=== PATIENT | female | born 1980 | race Native Hawaiian/Other Pacific Islander ===

== ENCOUNTER → 2016-06-05 | Outpatient (CLI) | payer BC | END | disposition home or self-care (01) | LOC: LABWHC1 14:32 | PROVIDERS: ATTEND Midwife | DX: Z36 Encounter for antenatal screening of mother (principal) | CPT/HCPCS: 36415; 82950 ==

== ENCOUNTER → 2016-06-29 | Outpatient (CLI) | payer BC ==
[2016-06-29 13:16] LABS: Glucose 3 Hour, Gest 110 mg/dL
== END ==
LOC: LABWHC1 08:17
PROVIDERS: ATTEND Obstetrics & Gynecology
DX: R73.09 Other abnormal glucose (principal)
CPT/HCPCS: 36415; 82951; 82952

== ENCOUNTER 2020-05-11 17:24 | Observation (INO) | payer BC, OTHER ==
[2020-05-11] MEDS ORDERED: SODIUM CHLORIDE 0.9% 1,000 ML IV STA (17:54)
[2020-05-11] MEDS ORDERED: ONDANSETRON 4 MG/2 ML VIAL IVP STA (17:54)
[2020-05-11] MEDS ORDERED: MORPHINE SULFATE 4 MG/ML SYRINGE IV STA (17:54)
[2020-05-11] MEDS ORDERED: ACETAMINOPHEN TAB 500 MG TAB PO STA (18:03)
--- NOTE | 2020-05-11 18:06 | ED ---
Abdominal Pain HPI - General Source: patient Mode of arrival: ambulatory Limitations: no limitations <Carol Wheeler - Last Filed: 05/11/20 20:21> <Mable Garcia - Last Filed: 05/15/20 16:16> - General Chief Complaint: Abdominal Pain Stated Complaint: Stomachache Time Seen by Provider: 05/11/20 17:43 - History of Present Illness Initial Comments: Patient is a 40-year-old female, with history of ulcerative colitis, presenting to the emergency Department with complaints of acute abdominal pain for the last 2 days. Patient states she has not had any issues with her colitis in many years, however the past 2 weeks she has been noticing increase in bloody diarrhea. Patient states for the last 2 days her abdominal pain has increased tremendously. She stated yesterday she noticed a fever about 99-100 which has continued today. She has not been able to eat or drink very much, she has been very nauseous. She denies being secondary to tubal ligation. She denies any abdominal surgeries. She denies any chest pain or shortness of breath, recent cough or congestion. She states her pain is mostly in the upper abdomen but does have shooting pains to her lower abdomen. She denies any recent antibiotics, she is not on steroids. She has no further complaints at this time. Upon arrival to the ER, she does with temperature 99.8, her pulse is 1:30, rest of vitals are normal. (Carol Wheeler) - Related Data Previous Rx's Medication Instructions Recorded Dicyclomine [Bentyl] 10 mg PO TID #30 capsule 05/12/20 Ondansetron Odt [Zofran Odt] 4 mg PO Q8HR PRN 3 Days #9 tab 05/12/20 predniSONE 0 mg PO DIRECTED #30 tab 05/12/20 Allergies Allergy/AdvReac Type Severity Reaction Status Date / Time No Known Allergies Allergy Verified 05/11/20 18:48 Review of Systems ROS Other: All systems not noted in ROS Statement are negative. <Carol Wheeler - Last Filed: 05/11/20 20:21> ROS Other: All systems not noted in ROS Statement are negative. <Mable Garcia - Last Filed: 05/15/20 16:16> ROS Statement: Those systems with pertinent positive or pertinent negative responses have been documented in the HPI. Past Medical History Additional Past Medical History / Comment(s): Ulcerative colitis History of Any Multi-Drug Resistant Organisms: None Reported Past Surgical History: Section Additional Past Surgical History / Comment(s): back surgery Past Psychological History: No Psychological Hx Reported Smoking Status: Never smoker Past Alcohol Use History: None Reported Past Drug Use History: None Reported <Carol Wheeler - Last Filed: 05/11/20 20:21> General Exam Limitations: no limitations <Carol Wheeler - Last Filed: 05/11/20 20:21> - General Exam Comments Initial Comments: GENERAL: Patient is well-developed and well-nourished. Patient looks very uncomfortable, in moderate distress, diaphoretic. HEAD: Atraumatic, normocephalic. EYES: Pupils equal round and reactive to light, extraocular movements intact, sclera anicteric, conjunctiva are normal. Eyelids were unremarkable. ENT: TMs normal, nares patent, oropharynx clear without exudates. Moist mucous membranes. NECK: Normal range of motion, supple without lymphadenopathy or JVD. LUNGS: Unlabored respirations. Breath sounds clear to auscultation bilaterally and equal. No wheezes rales or rhonchi. HEART: Tachy rate and rhythm without murmurs, rubs or gallops. ABDOMEN: Patient's abdomen is very tender all over, no specific area of pain. She is guarding. Soft, hyperactive bowel sounds. No masses appreciated. : Deferred MUSCULOSKELETAL: Normal extremities with adequate strength and normal range of motion, no pitting or edema. No clubbing or cyanosis. NEUROLOGICAL: Patient is alert and oriented x 3. Motor and sensory are also intact. Cranial nerves II through XII grossly intact. Symmetrical smile. Normal speech, normal gait. PSYCH: Normal mood, normal affect. SKIN: Warm, Dry, normal turgor, no rashes or lesions noted. (Carol Wheeler) Course Vital Signs 05/11/20 05/11/20 17:34 19:17 Temperature 99.8 F H Pulse Rate 132 H 115 H Respiratory 20 18 Rate Blood Pressure 130/74 144/72 O2 Sat by Pulse 99 100 Oximetry Medical Decision Making - Lab Data Result diagrams: 05/11/20 17:54 01/16/21 17:54 <Carol Wheeler - Last Filed: 05/11/20 20:21> - Lab Data Result diagrams: 05/12/20 10:13 05/12/20 10:13 <Mable Garcia - Last Filed: 05/15/20 16:16> - Medical Decision Making Patient is a 40-year-old female with history of ulcerative colitis presenting with acute abdominal pain 2 days as well as 2 weeks of bloody diarrhea. She has not had any issues for many years with her UC. Positive fever for 2 days, she did arrive febrile 99.8, tachycardia at 130. She is in moderate distress, significant abdominal pain on palpation, diaphoretic. Patient does have an elevated white count 19.3, coags are normal, hemoglobin is stable, lactic acid is 1.0, lipase is normal. CT of the abdomen shows moderate descending colon wall thickening, represents colitis, no bowel obstruction or acute appendicitis. Patient was given fluids, pain control, Zofran. She continues to be in moderate pain, continues to be nauseous. I discussed these findings with the patient. Did recommend admission for IV steroids, dose of antibiotics for the colitis and acute flare. Patient is in agreement with this plan and care. Patient was accepted by Dr. Shields, case discussed with Dr. Garcia. I did give single dose of solu-Medrol as well as Rocephin and Flagyl. GI consult. (Carol Wheeler) I was available for consultation in the emergency department. The history and physical exam were done by the midlevel provider. I was consulted for this patients care. I reviewed the case with the midlevel provider and based on their presentation of the patient, I agree with the assessment, medical decision making and plan of care as documented. Chart was dictated using [employer] dictation software. Attempts were made to correct any dictation errors however some typographical errors may persist. Patient was seen during a national state of emergency due to the Covid-19 pandemic. (Mable Garcia) - Lab Data Lab Results 05/11/20 05/11/20 05/11/20 Range/Units 17:54 17:54 17:54 WBC 19.3 H (3.8-10.6) k/uL RBC 4.45 (3.80-5.40) m/uL Hgb 13.2 (11.4-16.0) gm/dL Hct 38.0 (34.0-46.0) % MCV 85.4 (80.0-100.0) fL MCH 29.6 (25.0-35.0) pg MCHC 34.7 (31.0-37.0) g/dL RDW 13.3 (11.5-15.5) % Plt Count 458 H (150-450) k/uL MPV 6.5 Neutrophils % 78 % Lymphocytes % 11 % Monocytes % 9 % Eosinophils % 0 % Basophils % 1 % Neutrophils # 15.1 H (1.3-7.7) k/uL Lymphocytes # 2.1 (1.0-4.8) k/uL Monocytes # 1.7 H (0-1.0) k/uL Eosinophils # 0.1 (0-0.7) k/uL Basophils # 0.1 (0-0.2) k/uL PT 10.8 (9.0-12.0) sec INR 1.0 (<1.2) APTT 25.8 (22.0-30.0) sec Sodium 136 L (137-145) mmol/L Potassium 3.6 (3.5-5.1) mmol/L Chloride 105 (98-107) mmol/L Carbon Dioxide 22 (22-30) mmol/L Anion Gap 9 mmol/L BUN 8 (7-17) mg/dL Creatinine 0.25 L (0.52-1.04) mg/dL Est GFR (CKD-EPI)AfAm >90 (>60 ml/min/1.73 sqM) Est GFR (CKD-EPI)NonAf >90 (>60 ml/min/1.73 sqM) Glucose 99 (74-99) mg/dL Plasma Lactic Acid Andres (0.7-2.0) mmol/L Calcium 9.1 (8.4-10.2) mg/dL Total Bilirubin 0.5 (0.2-1.3) mg/dL AST 24 (14-36) U/L ALT 24 (4-34) U/L Alkaline Phosphatase 125 (38-126) U/L C-Reactive Protein (<10.0) mg/L Total Protein 6.8 (6.3-8.2) g/dL Albumin 3.4 L (3.5-5.0) g/dL Amylase <30 L (30-110) U/L Lipase 36 (23-300) U/L 05/11/20 05/11/20 Range/Units 17:54 17:54 WBC (3.8-10.6) k/uL RBC (3.80-5.40) m/uL Hgb (11.4-16.0) gm/dL Hct (34.0-46.0) % MCV (80.0-100.0) fL MCH (25.0-35.0) pg MCHC (31.0-37.0) g/dL RDW (11.5-15.5) % Plt Count (150-450) k/uL MPV Neutrophils % % Lymphocytes % % Monocytes % % Eosinophils % % Basophils % % Neutrophils # (1.3-7.7) k/uL Lymphocytes # (1.0-4.8) k/uL Monocytes # (0-1.0) k/uL Eosinophils # (0-0.7) k/uL Basophils # (0-0.2) k/uL PT (9.0-12.0) sec INR (<1.2) APTT (22.0-30.0) sec Sodium (137-145) mmol/L Potassium (3.5-5.1) mmol/L Chloride (98-107) mmol/L Carbon Dioxide (22-30) mmol/L Anion Gap mmol/L BUN (7-17) mg/dL Creatinine (0.52-1.04) mg/dL Est GFR (CKD-EPI)AfAm (>60 ml/min/1.73 sqM) Est GFR (CKD-EPI)NonAf (>60 ml/min/1.73 sqM) Glucose (74-99) mg/dL Plasma Lactic Acid Andres 1.0 (0.7-2.0) mmol/L Calcium (8.4-10.2) mg/dL Total Bilirubin (0.2-1.3) mg/dL AST (14-36) U/L ALT (4-34) U/L Alkaline Phosphatase (38-126) U/L C-Reactive Protein 85.7 H (<10.0) mg/L Total Protein (6.3-8.2) g/dL Albumin (3.5-5.0) g/dL Amylase (30-110) U/L Lipase (23-300) U/L Disposition Decision Date: 05/11/20 Decision Time: 19:34 <Carol Wheeler - Last Filed: 05/11/20 20:21> <Mable Garcia - Last Filed: 05/15/20 16:16> Clinical Impression: Ulcerative colitis, acute, Abdominal pain, Febrile Disposition: ADMITTED IP TO THIS [facility] Condition: Stable
[2020-05-11 18:31] LABS: Basophils # (A) 0.1 k/uL (0-0.2); Basophils % (A) 1 %; Eosinophils # (A) 0.1 k/uL (0-0.7); Eosinophils % (A) 0 %; HGB 13.2 gm/dL (11.4-16.0); Lymphocytes # (A) 2.1 k/uL (1.0-4.8); Lymphocytes % (A) 11 %; MCH 29.6 pg (25.0-35.0); MCHC 34.7 g/dL (31.0-37.0); MCV 85.4 fL (80.0-100.0); Mean Platelet Volume 6.5; Monocytes # (A) 1.7 k/uL (0-1.0); Monocytes % (A) 9 %; Neutrophils # (A) 15.1 k/uL (1.3-7.7); Neutrophils % (A) 78 %; Platelet Count 458 k/uL (150-450); RBC 4.45 m/uL (3.80-5.40); RDW 13.3 % (11.5-15.5); WBC 19.3 k/uL (3.8-10.6)
[2020-05-11 18:47] LABS: ALT 24 U/L (4-34); AST 24 U/L (14-36); African American GFR (CKD) >90 (>60 ml/min/1.73 sqM); Albumin 3.4 g/dL (3.5-5.0); Alkaline Phosphatase 125 U/L (38-126); Amylase <30 U/L (30-110); Anion Gap 9 mmol/L; Blood Urea Nitrogen 8 mg/dL (7-17); Calcium 9.1 mg/dL (8.4-10.2); Carbon Dioxide 22 mmol/L (22-30); Chloride 105 mmol/L (98-107); Glucose 99 mg/dL (74-99); Lipase 36 U/L (23-300); Non-African American GFR(CKD) >90 (>60 ml/min/1.73 sqM); Potassium 3.6 mmol/L (3.5-5.1); Sodium 136 mmol/L (137-145); Total Bilirubin 0.5 mg/dL (0.2-1.3); Total Protein 6.8 g/dL (6.3-8.2)
--- NOTE | 2020-05-11 18:52 | CT ---
EXAMINATION TYPE: CT abdomen pelvis w con DATE OF EXAM: 05/11/2020 COMPARISON: None HISTORY: RLQ pain, nausea, vomiting, diarrhea CT DLP: 551.5 mGycm Automated exposure control for dose reduction was used. TECHNIQUE: Helical acquisition of images was performed from the lung bases through the pelvis. CONTRAST: Performed without Oral Contrast and with IV Contrast, patient injected with 100 mL of Isovue 300. FINDINGS: LUNG BASES: No significant abnormality is appreciated. LIVER/GB: No significant abnormality is appreciated. PANCREAS: No significant abnormality is seen. SPLEEN: No significant abnormality is seen. ADRENALS: No significant abnormality is seen. KIDNEYS: Nonspecific mild prominence of the left collecting system without obstructing calculus, may relate to parapelvic cyst versus ectasia. No right hydronephrosis or nephrolithiasis. FREE AIR: No free air is visualized. RETROPERITONEAL ADENOPATHY: None visualized REPRODUCTIVE ORGANS: No significant abnormality is seen URINARY BLADDER: No significant abnormality is seen. PELVIC ADENOPATHY: Scattered small low abdominal and pelvic lymph nodes, likely reactive. OSSEOUS STRUCTURES: No significant abnormality is seen. BOWEL: Moderate wall thickening of the descending colon. No bowel obstruction, free air or fluid. No acute appendicitis. The appendix is not confidently identified. Small hyperdense material within the cecum, may relate to ingested medication. OTHER: Bilateral tubal ligation clips seen. IMPRESSION: MODERATE DESCENDING COLONIC WALL THICKENING, MAY REPRESENT COLITIS. NO BOWEL OBSTRUCTION OR ACUTE APPENDICITIS. INCIDENTAL FINDINGS ABOVE.
[2020-05-11 18:53] LABS: Partial Thromboplastin Time 25.8 sec (22.0-30.0); Prothrombin Time 10.8 sec (9.0-12.0)
[2020-05-11] MEDS ORDERED: METOCLOPRAMIDE 5 MG/ML 2 ML VIAL IVP STA (19:24)
[2020-05-11] MEDS ORDERED: MORPHINE SULFATE 4 MG/ML SYRINGE IVP STA (19:24)
[2020-05-11] MEDS ORDERED: HYDROmorphone 1 MG/ML 1 ML SYRINGE IVP PRN (19:30)
[2020-05-11] MEDS ORDERED: SODIUM CHLORIDE 0.9% 1,000 ML IV SCH (19:30)
[2020-05-11] MEDS ORDERED: MORPHINE SULFATE 4 MG/ML SYRINGE IV PRN (19:30)
[2020-05-11] MEDS ORDERED: NALOXONE 0.4 MG/ML 1 ML VIAL IV PRN (19:30)
[2020-05-11] MEDS ORDERED: ONDANSETRON 4 MG/2 ML VIAL IVP PRN (19:30)
[2020-05-11] MEDS ORDERED: methylPREDNISolone SOD SUCCI 125 MG/2 ML VIAL IV STA (19:33)
[2020-05-11] MEDS ORDERED: metroNIDAZOLE-NS PMX 500 MG in SALINE 1 100ML.BAG IVPB STA (19:33)
[2020-05-11] MEDS ORDERED: cefTRIAXone IN SWFI 1,000 MG/10 ML SYRINGE IVP STA (19:33)
[2020-05-11] MEDS: PANTOPRAZOLE 40 MG/10 ML VIAL IV SCH (21:50)
[2020-05-11] MEDS ORDERED: ALPRAZolam 0.5 MG TAB PO STA (22:32)
--- NOTE | 2020-05-11 22:40 | P.HPIM ---
History of Present Illness H&P Date: 05/11/20 Patient is a 40-year-old female with a PMH of ulcerative colitis who presented to the emergency room with complaints of abdominal pain, bloody diarrhea, and lethargy. The patient reports that she had previously been in remission for the past 3 years and had thereby not seen a GI physician and had not been taking any medications for her ulcerative colitis. Her symptoms initially started after this past Thanksgiving. She reported multiple small bloody bowel movements daily with bright red to maroon colored stools, diffuse intermittent cramping abdominal pain, anorexia, and 40-45 pounds weight loss. She reports that her current symptoms are similar to when she was initially diagnosed. 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 She did see her primary care earlier this week and had undergone some blood work. She also reported intermittent chills over the past 2-3 days. Denied vomiting, chest pain, shortness of breath, lower extremity pain, lower extremity swelling, headaches, weakness, numbness, or tingling. The patient underwent an extensive evaluation in the emergency room. Upon presentation, the patient had a temp of 99.8, pulse 132, BP 130/74, and SpO2 99% on room air. Laboratory evaluation was reviewed and was remarkable for leukocytosis of 19.3, 458, sodium 136, creatinine 0.25, and a lactic acid of 1.0. CT abdomen and pelvis revealed moderate wall thickening of the descending colon consistent with colitis. Review of Systems Pertinent positives and negatives as discussed in HPI, a complete review of systems was performed and all other systems are negative. Past Medical History Additional Past Medical History / Comment(s): Ulcerative colitis History of Any Multi-Drug Resistant Organisms: None Reported Past Surgical History: Section Additional Past Surgical History / Comment(s): back surgery Past Psychological History: No Psychological Hx Reported Smoking Status: Never smoker Past Alcohol Use History: None Reported Past Drug Use History: None Reported Medications and Allergies Home Medications Medication Instructions Recorded Confirmed Type No Known Home Medications 05/11/20 05/11/20 History Allergies Allergy/AdvReac Type Severity Reaction Status Date / Time No Known Allergies Allergy Verified 05/11/20 18:48 Physical Exam Vitals: Vital Signs Temp Pulse Resp BP Pulse Ox 05/11/20 19:17 115 H 18 144/72 100 05/11/20 17:34 99.8 F H 132 H 20 130/74 99 Intake and Output 05/11/20 05/11/20 05/11/20 06:59 14:59 22:59 Other: Weight 75.75 kg General: Somewhat ill-appearing, anxious, appears at stated age, overweight Derm: no unusual rashes/lesions no unusual ecchymoses, warm, dry Head: atraumatic, normocephalic, symmetric Eyes: EOMI, no lid lag, anicteric sclera, pupils equal round reactive to light ENT: Nose and ears atraumatic, no thrush, no pharyngeal erythema Neck: No thyromegaly, no cervical lymphadenopathy, trachea midline, supple Mouth: no lip lesion, mucus membranes moist Cardiovascular: S1S2 reg, no murmur, positive posterior tibial pulse bilateral, no edema, capillary refill less than 2 seconds Lungs: CTA bilateral, no rhonchi, no rales , no accessory muscle use Abdominal: soft, diffuse mild tenderness to palpation, some guarding, no appreciable organomegaly Ext: no gross muscle atrophy, muscle strength 5 out of 5 in all 4 extremities grossly, no contractures, Neuro: CN II-XI grossly intact, light touch intact all 4 extremities, finger to nose within normal limits, Psych: Alert, oriented, appropriate affect Results CBC & Chem 7: 05/11/20 17:54 05/11/20 17:54 Labs: Abnormal Lab Results - Last 24 Hours (Table) 05/11/20 05/11/20 Range/Units 17:54 17:54 WBC 19.3 H (3.8-10.6) k/uL Plt Count 458 H (150-450) k/uL Neutrophils # 15.1 H (1.3-7.7) k/uL Monocytes # 1.7 H (0-1.0) k/uL Sodium 136 L (137-145) mmol/L Creatinine 0.25 L (0.52-1.04) mg/dL Albumin 3.4 L (3.5-5.0) g/dL Amylase <30 L (30-110) U/L Assessment and Plan Plan: Severe ulcerative colitis -Status post Solu-Medrol 125 mg IV in the emergency room -Continue with prednisone 40 mg by mouth -GI consult -IV fluids -Discontinue opiates -Clear liquid diet for now -Obtain CRP Leukocytosis -Likely secondary to ongoing flareup -Monitor for now Mild hyponatremia -Likely due to poor oral intake -Continue with IV fluids Thrombocytosis -Suspected secondary to dehydration versus reactive -Monitor for now DVT prophylaxis -Lovenox The patient is admitted with an anticipated greater than 2 midnight stay for evaluation of UC CODE STATUS: Full Code Discussed with: Patient Anticipated discharge date: 05/[address]: Home A total of 35 minutes was spent on the care of this complex patient more than 50% of the time was spent in counseling and care coordination
[2020-05-11] MEDS: methylPREDNISolone SOD SUCCI 40 MG/ML 1 ML VIAL IV SCH (23:01)
[2020-05-12] MEDS: ACETAMINOPHEN TAB 325 MG TAB PO PRN ×2 (00:09→06:07)
[2020-05-12 00:12] LABS: Appearance,Urine Clear (Clear); Bilirubin,Urine Negative (Negative); Blood,Urine Negative (Negative); Color,Urine Light Yellow; Glucose,Urine (UA) Negative (Negative); Ketones,Urine 2+ (Negative); Leukocyte Esterase,Urine Negative (Negative); Nitrite,Urine Negative (Negative); PH, Urine 6.5 (5.0-8.0); Protein,Urine Negative (Negative); Urobilinogen,Urine <2.0 mg/dL (<2.0)
[2020-05-12] MEDS ORDERED: ENOXAPARIN 40 MG/0.4 ML SYRINGE SQ SCH (09:00)
[2020-05-12] MEDS: PANTOPRAZOLE 40 MG/10 ML VIAL IV SCH (10:34)
[2020-05-12] MEDS: methylPREDNISolone SOD SUCCI 40 MG/ML 1 ML VIAL IV SCH (10:34)
[2020-05-12 10:37] VITALS: BP 116/57; PULSE 117; RESP 16; TEMP 97.9
[2020-05-12 11:07] LABS: HCT 35.2 % (34.0-46.0); MCH 29.8 pg (25.0-35.0); MCV 87.5 fL (80.0-100.0); Mean Platelet Volume 6.5; Platelet Count 424 k/uL (150-450); Poikilocytosis Slight; RBC 4.02 m/uL (3.80-5.40); RDW 13.6 % (11.5-15.5); WBC 15.3 k/uL (3.8-10.6)
[2020-05-12 11:26] LABS: African American GFR (CKD) >90 (>60 ml/min/1.73 sqM); Anion Gap 8 mmol/L; Blood Urea Nitrogen 8 mg/dL (7-17); Calcium 8.8 mg/dL (8.4-10.2); Carbon Dioxide 21 mmol/L (22-30); Chloride 110 mmol/L (98-107); Glucose 180 mg/dL (74-99); Magnesium 1.8 mg/dL (1.6-2.3); Non-African American GFR(CKD) >90 (>60 ml/min/1.73 sqM); Potassium 3.5 mmol/L (3.5-5.1); Sodium 139 mmol/L (137-145)
--- NOTE | 2020-05-12 12:49 | P.DS ---
Providers Date of admission: 05/11/20 22:40 Expected date of discharge: 05/12/20 Attending physician: Semaj Shields MD Consults: 05/11/20 19:31 Consult Physician Urgent Consulting Provider: Qasim Mckenzie Consult Reason/Comments: Ulcerative colitis flare Do you want consulting provider notified?: Yes Primary care physician: Tyler Zapata MD Hospital Course: This is a 40-year-old female with past medical history significant for ulcerative colitis that presented to the emergency room with abdominal pain, bloody diarrhea, and fatigue. Patient said that she has been in remission for the past 3 years and has not been taking any medication or following up with any physicians. Patient was evaluated in the ER and a computed tomography scan of the abdomen and pelvis showed evidence of colitis involving the descending colon. Patient was started on IV Solu-Medrol and placed on observation was treated with aggressive IV fluid hydration and symptomatic management. Her ov erall condition improved significantly. No bowel movement since admission. She was seen and evaluated by GI. She will be started on a slow taper course prednisone in addition to Bentyl 3 times a day. She will follow-up with GI in the office as directed for colonoscopy. Patient was able to tolerate regular diet with no difficulty on the day of discharge. Patient Condition at Discharge: Stable Plan - Discharge Summary New Discharge Prescriptions: New Dicyclomine [Bentyl] 10 mg PO TID #30 capsule predniSONE 0 mg PO DIRECTED #30 tab Discharge Medication List Dicyclomine [Bentyl] 10 mg PO TID #30 capsule 05/12/20 [Rx] predniSONE 0 mg PO DIRECTED #30 tab 05/12/20 [Rx] Follow up Appointment(s)/Referral(s): Tyler Zapata MD [Primary Care Provider] - 1-2 days Qasim Mckenzie MD [STAFF PHYSICIAN] - 1 Week Discharge Disposition: HOME SELF-CARE
[2020-05-12 14:05] VITALS: BMI 29.5
[2020-05-12] MEDS ORDERED: DICYCLOMINE 20 MG TAB PO SCH (16:00)
--- NOTE | 2020-05-12 20:27 | P.CONS ---
History of Present Illness - Reason for Consult Consult date: 05/12/20 Ulcerative colitis Requesting physician: Semaj Shields - Chief Complaint Abdominal pain, diarrhea, blood per rectum - History of Present Illness 32-year-old female with a medical history significant for ulcerative colitis who presented to the hospital with complaints of abdominal pain, diarrhea and blood per rectum. The patient reports a four-year history of ulcerative colitis. She reports that the disease was diagnosed 4 years ago during colonoscopy for evaluation of similar symptoms of pain and blood per rectum, she believes that the procedure was done as Teresa Garrison, however no records of the procedure available in the electronic medical record. She was started on medical therapy with a 5-ASA agent which she used for one year. She discontinued use and follow-up with GI after this. Since that time she believes that overall she is well. She has not required steroid therapy in the past per her recollection. Over the past few months she is been having increasing abdominal pain, frequency of bowel movements and blood per rectum. She reports severe bloating and sharp lower abdominal pain. She had multiple episodes of loose bowel movements and blood per rectum and states that prior to presentation these were occurring a few times per hour. He scan of the abdomen on presentation showed descending colon colitis. No colonoscopy since her initial colonoscopy for diagnosis for years ago. Laboratory evaluation significant for WBC 15.3, hemoglobin 12, platelet count 424,000, amylase less than 30, lipase 36, CRP 85.7. Review of Systems REVIEW OF SYSTEMS: CONSTITUTIONAL: Denies any fevers, chills, but she does report some weight loss. CARDIOVASCULAR: Denies any chest pain, palpitations high or low blood pressures RESPIRATORY: Denies any shortness of breath, hemoptysis or cough. GENITOURINARY: No dysuria or hematuria. MUSCULOSKELETAL: No weakness reported. SKIN: Denies any new rashes or lesions, jaundice or pallor. PSYCHIATRIC: Denies any depression or anxiety. NEUROLOGY: Denies headache, denies any new focal deficits. EARS/NOSE/THROAT: No recent hearing change, congestion, nasal discharge or sore throat. EYES: No pain in eyes, discharge or change in vision. GASTROINTESTINAL: As per HPI. Past Medical History Additional Past Medical History / Comment(s): Ulcerative colitis History of Any Multi-Drug Resistant Organisms: None Reported Past Surgical History: Section Additional Past Surgical History / Comment(s): back surgery Past Anesthesia/Blood Transfusion Reactions: No Reported Reaction Past Psychological History: No Psychological Hx Reported Smoking Status: Never smoker Past Alcohol Use History: None Reported Past Drug Use History: None Reported Additional History: Family history: No family history of of inflammatory bowel disease, ulcerative colitis or Crohn's disease. Medications and Allergies Home Medications Medication Instructions Recorded Confirmed Type Dicyclomine [Bentyl] 10 mg PO TID #30 capsule 05/12/20 Rx Ondansetron Odt [Zofran Odt] 4 mg PO Q8HR PRN 3 Days #9 tab 05/12/20 Rx predniSONE 0 mg PO DIRECTED #30 tab 05/12/20 Rx Allergies Allergy/AdvReac Type Severity Reaction Status Date / Time No Known Allergies Allergy Verified 05/11/20 18:48 Physical Exam Vitals: Vital Signs Temp Pulse Pulse Resp BP BP Pulse Ox 05/12/20 09:00 97.9 F 117 H 16 116/57 100 05/12/20 03:00 98.0 F 112 H 145/82 100 05/11/20 20:25 99.4 F 116 H 137/70 99 05/11/20 19:17 115 H 18 144/72 100 05/11/20 17:34 99.8 F H 132 H 20 130/74 99 Intake and Output 05/11/20 05/12/20 05/12/20 22:59 06:59 14:59 Intake Total 70 70 Balance 70 70 Intake: Oral 70 70 Other: Voiding Method Toilet Toilet Toilet # Voids 3 3 # Bowel Movements 5 5 Weight 75.75 kg 75.75 kg On physical examination, patient appears comfortable in no apparent distress. HEAD: Normocephalic, atraumatic. EYES: No scleral icterus. No conjunctival injection. MOUTH: No lesions, tongue midline. NECK: Trachea midline, no gross abnormalities. CHEST: Clear to auscultation with no wheezing or rhonchi appreciated. HEART: Regular rate and rhythm. ABDOMEN: Soft, mildly tender to palpation in the left lower quadrant of the abdomen. Bowel sounds are positive. No organomegaly. No guarding or rigidity. EXTREMITIES: No pedal edema. SKIN: No rashes, no jaundice. NEUROLOGIC: Alert and oriented x3. No focal deficits. Results CBC & Chem 7: 05/12/20 10:13 05/12/20 10:13 Labs: Abnormal Lab Results - Last 24 Hours (Table) 05/11/20 05/11/20 05/11/20 Range/Units 17:54 17:54 17:54 WBC 19.3 H (3.8-10.6) k/uL Plt Count 458 H (150-450) k/uL Neutrophils # 15.1 H (1.3-7.7) k/uL Monocytes # 1.7 H (0-1.0) k/uL Sodium 136 L (137-145) mmol/L Chloride (98-107) mmol/L Carbon Dioxide (22-30) mmol/L Creatinine 0.25 L (0.52-1.04) mg/dL Glucose (74-99) mg/dL C-Reactive Protein 85.7 H (<10.0) mg/L Albumin 3.4 L (3.5-5.0) g/dL Amylase <30 L (30-110) U/L Urine Ketones (Negative) 05/11/20 05/12/20 05/12/20 Range/Units 23:50 10:13 10:13 WBC 15.3 H (3.8-10.6) k/uL Plt Count (150-450) k/uL Neutrophils # (1.3-7.7) k/uL Monocytes # (0-1.0) k/uL Sodium (137-145) mmol/L Chloride 110 H (98-107) mmol/L Carbon Dioxide 21 L (22-30) mmol/L Creatinine 0.28 L (0.52-1.04) mg/dL Glucose 180 H (74-99) mg/dL C-Reactive Protein (<10.0) mg/L Albumin (3.5-5.0) g/dL Amylase (30-110) U/L Urine Ketones 2+ H (Negative) CT scan - abdomen: report reviewed (Computed tomography scan of the abdomen with findings of descending colon colitis) Assessment and Plan (1) Ulcerative colitis, acute Narrative/Plan: Pleasant 32-year-old female presents to the hospital with complaints of blood per rectum, abdominal pain and frequency of bowel movements. She has a history of ulcerative colitis diagnosed 4 years ago. She was on oral therapy with a 5ASA agent for 1 year but stopped as she was feeling better. Her symptoms of abdominal pain, frequency of bowel movements and blood per rectum of increasing over the past few months and she reports having bowel movements multiple times for hour prior to presentation. Computed tomography scan showed a descending colon colitis. Laboratory evaluation significant for CRP of 82. Likely related to acute exacerbation of her ulcerative colitis, testing for Clostridium difficile ordered to rule out infection. Status: Acute Code(s): K51.90 - ULCERATIVE COLITIS, UNSPECIFIED, WITHOUT COMPLICATIONS SNOMED Code(s): 513195795 (2) Hematochezia Status: Acute Code(s): K92.1 - MELENA SNOMED Code(s): 139911975 (3) Abdominal pain Status: Acute Code(s): R10.9 - UNSPECIFIED ABDOMINAL PAIN SNOMED Code(s): 82321532 Plan: Supportive care Okay for diet as tolerated Continue monitor CBC, BMP, LFTs Computed tomography scan of the abdomen reviewed Patient initiated on oral therapy with prednisone 40 mg daily, if patient is going to be discharged today would recommend a tapering dose by 10 mg weekly for 4 weeks Extensive discussion with the patient and recommend close follow-up with GI in the next 1-2 weeks for scheduling of colonoscopy in the outpatient setting Patient will likely require maintenance therapy which is been discussed with her at length, she will need close follow-up with the gastroenterology service as stated to avoid all locations of her disease going forward, this is been discussed with the patient at length with all of her questions answered to her satisfaction Thank you for allowing us to participate in the care of the patient
== END 2020-05-12 15:55 | disposition home or self-care (01) ==
LOC: EC 17:24 → 1SOBS 19:35 → OBSVTOIN 22:40 → INTOOBSV 22:40 → UNDODISIN 05-12 15:55
PROVIDERS: ADMIT Internal Medicine; ATTEND Internal Medicine
DX: K51.90 Ulcerative colitis, unspecified, without complications (principal); E87.1 Hypo-osmolality and hyponatremia; Z98.891 History of uterine scar from previous surgery; Z98.51 Tubal ligation status
CPT/HCPCS: 96361 ×3; 96365; 96375 ×2; 96376 ×3; 99285; 36415; 80053; 80048; 82150; 83605; 83690; 83735; 85025; 85027; 85610; 85730; 86140; 81003; 87040; 74177; G0378 ×2; J2270; J2765; J2920 ×2; J2930; J2405 ×2; J0696; C9113 ×2; Q9967; 96374

== ENCOUNTER 2020-07-11 06:40 | Day surgery (SDC) | payer OTHER ==
[2020-07-09 12:46] VITALS: BMI 30.2
[2020-07-11 07:07] VITALS: RESP 18; TEMP 97.8
[2020-07-11] MEDS: LACTATED RINGERS 1,000 ML IV SCH ×2 (07:13→07:41)
[2020-07-11] MEDS ORDERED: fentaNYL (PF) 50 MCG/ML 2 ML AMP ONE (07:43)
[2020-07-11] MEDS ORDERED: MIDAZOLAM 2 MG/2 ML VIAL ONE (07:43)
[2020-07-11] MEDS ORDERED: PROPOFOL 10 MG/ML 20 ML VIAL IV ONE (07:43)
[2020-07-11] MEDS ORDERED: IV FLUID CONTINUATION 1,000 ML IV ONE (08:04)
--- NOTE | 2020-07-11 08:13 | P.PCN ---
Date of Procedure: 07/11/20 Description of Procedure: BRIEF HISTORY: Patient is a 40-year-old female presenting for outpatient colonoscopy for left- sided ulcerative colitis. Patient has a diagnosis of ulcerative colitis initially made 4 years ago when she was complaining of abdominal pain, diarrhea and blood per rectum. She reports a short course of treatment with a 5ASA agent but subsequently failed to follow up with GI. She was seen back in the hospital complaining of abdominal pain and blood per rectum with increased frequency of bowel movements found to have an elevated CRP of 85.[address] at that time [address] CT imaging showing a descending colon colitis. The patient was given an extended course of steroid taper and started back on sulfasalazine therapy. She presents back for colonoscopy. Overall symptoms are improving at this time. PROCEDURE PERFORMED: Colonoscopy with biopsy. PREOPERATIVE DIAGNOSIS: Left-sided ulcerative colitis. ESTIMATED BLOOD LOSS: Minimal. IV sedation per Anesthesia. PROCEDURE: After informed consent was obtained, the patient, was brought into the endoscopy unit. IV sedation was administered by Anesthesia under continuous monitoring. Digital rectal examination was normal. Initially the Olympus CF-190 flexible video colonoscope was then inserted in the rectum, gradually advanced into the cecum without any difficulty. Careful examination was performed as the scope was gradually being withdrawn. Ileocecal valve and the appendiceal orifice were visualized and appeared normal. Prep was excellent. Mucosa of the cecum, ascending colon, transverse colon, descending colon, sigmoid colon, and rectum were significant for diffuse erythema with some friability in the distal descending colon, sigmoid colon and rectum. Retroflexion was performed in the rectum and no lesions were seen. The patient tolerated the procedure well. IMPRESSION: Mild to moderate left-sided ulcerative colitis with biopsies. RECOMMENDATIONS: Findings of this examination were discussed with the patient and her family. Okay to resume diet. Okay to resume medications. Await pathology from biopsies. Patient should follow-up in the clinic in June as scheduled for continued management and titration of medications.
[2020-07-11 08:26] VITALS: BP 100/54; PULSE 98
== END 2020-07-11 08:57 | disposition home or self-care (01) ==
LOC: ORWHC2ENDO 06:40
PROVIDERS: ATTEND Internal Medicine
DX: K51.50 Left sided colitis without complications (principal); K62.89 Other specified diseases of anus and rectum; Z79.899 Other long term (current) drug therapy
CPT/HCPCS: 81025; 88305; 45380; J2250; J3010; J2704

== ENCOUNTER 2020-12-17 22:19 | Emergency (ER) | payer OTHER ==
[2020-12-17 23:15] VITALS: BP 134/86; PULSE 86; RESP 18; TEMP 98
--- NOTE | 2020-12-18 00:31 | ED ---
General Adult HPI - General Chief complaint: Skin/Abscess/Foreign Body Stated complaint: Spider bite Time Seen by Provider: 12/17/20 23:57 Source: patient Mode of arrival: ambulatory Limitations: no limitations - History of Present Illness Initial comments: 40-year-old female presents to the emergency room for a chief complaint of skin problem. Patient reports that 6 months ago she developed a lesion on her finger. States she has seen her doctor twice for it and he did refer her to a soda fountain manager. She has an in February. Patient states it started throbbing and her family wanted her to be seen for possible removal through the emergency room. Patient denies fevers or denies chills. Denies sling of the finger. Denies pain with bending the finger.Patient has no other complaints at this time including shortness of breath, chest pain, abdominal pain, nausea or vomiting, headache, or visual changes. - Related Data Home Medications Medication Instructions Recorded Confirmed Cholecalciferol (Vitamin D3) 125 mcg PO DAILY 07/09/20 07/11/20 [Vitamin D3 (5000 Iu)] Pregabalin [Lyrica] 50 mg PO TID 07/09/20 07/11/20 sulfaSALAzine [Sulfasalazine] 1,500 mg PO BID 07/09/20 07/11/20 Allergies Allergy/AdvReac Type Severity Reaction Status Date / Time No Known Allergies Allergy Verified 07/11/20 06:56 Review of Systems ROS Statement: Those systems with pertinent positive or pertinent negative responses have been documented in the HPI. ROS Other: All systems not noted in ROS Statement are negative. Past Medical History Additional Past Medical History / Comment(s): Ulcerative colitis History of Any Multi-Drug Resistant Organisms: None Reported Past Surgical History: Back Surgery, Section Additional Past Surgical History / Comment(s): COLONOSCOPY Past Anesthesia/Blood Transfusion Reactions: No Reported Reaction Past Psychological History: No Psychological Hx Reported Smoking Status: Never smoker Past Alcohol Use History: None Reported Past Drug Use History: None Reported - Past Family History Mother Family Medical History: Cancer Additional Family Medical History / Comment(s): LYMPHOMA General Exam Limitations: no limitations General appearance: alert Head exam: Present: atraumatic Eye exam: Present: normal appearance, PERRL, EOMI. Absent: scleral icterus, periorbital swelling ENT exam: Present: normal exam, mucous membranes moist Neck exam: Present: normal inspection, full ROM. Absent: tenderness Respiratory exam: Present: normal lung sounds bilaterally. Absent: respiratory distress, wheezes Cardiovascular Exam: Present: regular rate, normal rhythm, normal heart sounds Extremities exam: Present: other (Patient has an erythematous nodule noted to the proximal phalanx radial aspect left second digit) Course Vital Signs 12/17/20 22:55 Temperature 98 F Pulse Rate 86 Respiratory 18 Rate Blood Pressure 134/86 O2 Sat by Pulse 100 Oximetry Medical Decision Making - Medical Decision Making Patient has an erythematous nodule noted to the proximal phalanx of the left second digit. She does not have any surrounding erythema, streaking redness, pain with flexing the finger, or swelling of the finger. Fortunately it would be inappropriate to excise this area in the emergency room and patient would need a biopsy performed. This is not distant with an abscess that can be drained. I discussed the importance of closely following up with dermatology. Patient does have an appointment in February but I encouraged her to call several other dermatology practices to try to get an earlier appointment. Patient is understanding of this. She will return here for any worsening symptoms. Disposition Clinical Impression: Lesion of finger Disposition: HOME SELF-CARE Condition: Good Instructions (If sedation given, give patient instructions): Soft Tissue Mass (ED) Additional Instructions: Please follow up with soda fountain manager as soon as possible. Return to the emergency room for any worsening symptoms such as spreading or streaking red ness, fevers, swelling of the finger, or difficulty bending the finger. Is patient prescribed a controlled substance at d/c from ED?: No Referrals: Tyler Zapata MD [Primary Care Provider] - 1-2 days Time of Disposition: 00:29
== END 2020-12-18 00:38 | disposition home or self-care (01) ==
LOC: EC 22:19
DX: L98.8 Other specified disorders of the skin and subcutaneous tissue (principal)
CPT/HCPCS: 99282